=== PATIENT | male | born 2000 | race Caucasian/White ===

== ENCOUNTER 2020-06-24 13:02 | Emergency (ER) | payer SELFPAY ==
[~2020-06-24] VITALS: Ht 185.4 cm; Wt 70.3 kg
[~2020-06-24 13:02] MED LIST: NORCO 10-325 T1 EACH PO
== END 2020-06-24 15:26 | disposition home or self-care (01) ==
LOC: ED 13:02
DX: B34.9 Viral infection, unspecified (principal); Z20.828 Contact with and (suspected) exposure to other viral communicable diseases; F17.200 Nicotine dependence, unspecified, uncomplicated
CPT/HCPCS: 99284; C9803; U0003

== ENCOUNTER 2025-02-23 23:00 | Emergency (ER) | payer OTHER ==
[~2025-02-23] VITALS: Ht 185.4 cm; Wt 70.0 kg
[2025-02-23] MEDS ORDERED: AMOX TR-K CLV1 EAC1 PO (23:24)
[2025-02-23] MEDS ORDERED: AMOXICILLIN/CLAVULANATE K 875 MG HOME.PACK PO ONE (23:30)
[2025-02-23 23:42] VITALS: BP 138/76
== END 2025-02-23 23:44 | disposition home or self-care (01) ==
LOC: ED 23:00
DX: S60.465A Insect bite (nonvenomous) of left ring finger, initial encounter (principal); F17.200 Nicotine dependence, unspecified, uncomplicated; W57.XXXA Bitten or stung by nonvenomous insect and other nonvenomous arthropods, initial encounter
CPT/HCPCS: 99281

== ENCOUNTER 2025-03-29 10:58 | Emergency (ER) | payer OTHER ==
[~2025-03-29] VITALS: Ht 185.4 cm; Wt 65.6 kg
--- OUTSIDE RECORDS SUMMARY | ~2025-03-29 | XMS | Continuity of Care Document ---
Demographics + + + | Address | [address] | | | [place] [address] | + + + | Preferred Language | Unknown | + + + | Marital Status | Never | + + + | Restorationist Affiliation | Unknown | + + + | Race | White | + + + | Ethnic Group | Not or | + + + Author + + + | Author | [facility] | + + + | Organization | [facility] | + + + | Address | [address] | | | [place] [address] | + + + | Phone | | + + + Care Team Providers + + + + | Care Level Vial Setter Name | Role | Phone | + + + + Unavailable | Unavailable | + + + + Unavailable | Unavailable | + + + + Allergies No information. Encounters No information. Functional Status No information. Immunizations No information. Medications + + + + | date | description | facility | + + + + | 2025-02-23 00:00 | AMOXICILLIN/POTASSIUM CLAV | [facility] | | | | [facility] | + + + + Problems + + + + | date | description | facility | + + + + | 2025-02-23 00:00 | Infected insect bite of | [facility] | | | finger | [facility] | + + + + Procedures No information. Results/Labs No information. Social History +--------+ + + | date | description | facility | +--------+ + + Vital Signs + + + +---------+ | date | measurement | value | units | + + + +---------+ | 2025-02-23 00:00 | BMI | 20.4 | kg/m2 | + + + +---------+ | 2025-02-23 00:00 | BP_diastolic | 76 | mmHg | + + + +---------+ | 2025-02-23 00:00 | BP_systolic | 138 | mmHg | + + + +---------+ | 2025-02-23 00:00 | heart_rate | 83 | /min | + + + +---------+ | 2025-02-23 00:00 | height_metric | 185.42 | cm | + + + +---------+ | 2025-02-23 00:00 | height_standard | 73 | in | + + + +---------+ | 2025-02-23 00:00 | o2_saturation | 97 | % | + + + +---------+ | 2025-02-23 00:00 | respiration_rate | 16 | /min | + + + +---------+ | 2025-02-23 00:00 | temperature_metric | 36.5 | C | | | | | | + + + +---------+ | 2025-02-23 00:00 | | 97.7 | F | | | temperature_standar | | | | | d | | | + + + +---------+ | 2025-02-23 00:00 | weight_metric | 70 | kg | + + + +---------+ | 2025-02-23 00:00 | weight_standard | 154.33 | lb | + + + +---------+"
[~2025-03-29 10:58] MED LIST changes: +AMOX TR-K CLV1 EAC1 PO
[2025-03-29] MEDS ORDERED: DIVALPROEX SOD500 M1 PO (11:34)
[2025-03-29 12:56] LABS: BASOPHILS 0.4 % (0.2-1.2); EOSINOPHILS 5.0 % (0.8-7.0); LYMPHOCYTES 22.4 % (21.8-53.1); MCH 31.3 PG (25.7-32.2); MCHC 34.3 g/dL (32.3-36.5); MCV 91.2 fL (79.0-92.2); MONOCYTES 8.1 % (5.3-12.2); NEUTROPHILS 63.7 % (34.0-67.9); RBC 5.47 M/uL (4.63-6.08)
[2025-03-29 13:30] LABS: ALT (SGPT) 26.0 U/L (14-59); AST (SGOT) 13.0 U/L (15-37); GLOMERULAR FILTRATION RATE,EST 105.0 mL/min (>60); PROTEIN, TOTAL 8.0 g/dL (6.4-8.2); UREA NITROGEN 13.0 mg/dL (7-18)
[2025-03-29] MEDS ORDERED: CEPHALEXIN500 M1 PO (14:51)
[2025-03-29 15:05] VITALS: BP 137/88
== END 2025-03-29 15:00 | disposition home or self-care (01) ==
LOC: ED 10:58
PROVIDERS: Emergency Medicine
DX: L03.113 Cellulitis of right upper limb (principal); G40.909 Epilepsy, unspecified, not intractable, without status epilepticus; F17.200 Nicotine dependence, unspecified, uncomplicated; Z79.899 Other long term (current) drug therapy
CPT/HCPCS: 36415; 73130; 80053; 83605; 85025; 96365; 99283-25; J0696